=== PATIENT | male | born 1990 | race Caucasian/White ===

== ENCOUNTER 2023-12-30 06:57 | Day surgery (SDC) | payer BC, MEDICAID, SELFPAY ==
[2023-12-26 14:15] VITALS: BMI 26.4
--- NOTE | 2023-12-29 13:49 | HO.ANESPROP2 ---
Documented by User: Mary Alice Fowler NP 12/29/23 14:00 HPI - Anesthesia Eval Consult details Narrative: 33yo M for Upper Endoscopy Per 12/2023 [facility] neurosurgery note: Pt with congenital hydrocephalus and bilateral lateral ventricular catheters and fourth ventricular catheter; epilepsy with good seizure control on depakote. Fell 09/2023 while vacationing in [place] with head injury requiring [employer] shunt revision, revision of his fourth ventricular catheter and placement of distal shunt into pleural cavity. Prolonged hospitalization and additional seizures, prompting change in antiepileptics. Brain MRI 12/2023 demonstrates decreased size of lateral ventricles and fourth ventricle c/w head CT 09/[address] Soledad GAN Past Medical History Medical History (Updated 12/29/23 @ 07:03 by Marilia Chang, RN) Autism Intellectual disability Hydrocephalus Seizures GERD (gastroesophageal reflux disease) Surgical History Surgical History (Updated 12/26/23 @ 14:20 by Jeannie Lennon RN) History of surgery [employer] (ventriculoperitoneal) shunt status Social History Social History Patient Tobacco Use Status: Never used Tobacco Use of substances other than those prescribed or required for medical reasons: No Are you DNR?: No Advance Directives: No Advance Directives Information Provided: Yes Meds Allergies Allergy/AdvReac Type Severity Reaction Status Date / Time ceftriaxone [From Rocephin] Allergy Unknown Unknown Verified 12/26/23 14:15 Home Medications ?Medication ?Instructions ?Recorded ?Confirmed ?Last Taken ?Type clobazam 10 mg tablet 5 mg PO BEDTIME 12/26/23 12/30/23 12/29/23 History divalproex 125 mg tablet,delayed 500 mg PO BID 12/26/23 12/30/23 12/29/23 History release (Depakote) docusate sodium 100 mg capsule 100 mg PO BID constipation 12/26/23 12/30/23 12/29/23 History Exam Height,Weight and Vital Signs: Height 5 ft 3 in Weight 67.585 kg Documented by User: Flyod Wheat MD 12/30/23 14:18 [facility] Past Medical History Medical History (Updated 12/29/23 @ 07:03 by Marilia Chang RN) Autism Intellectual disability Hydrocephalus Seizures GERD (gastroesophageal reflux disease) Family History Family history of problems with anesthesia: No Surgical History Surgical History (Updated 12/26/23 @ 14:20 by Jeannie Lennon RN) History of surgery [employer] (ventriculoperitoneal) shunt status History of Problems with Anesthesia: No Social History Social History Patient Tobacco Use Status: Never used Tobacco Use of substances other than those prescribed or required for medical reasons: No Are you DNR?: No Advance Directives: No Advance Directives Information Provided: Yes Meds Allergies Allergy/AdvReac Type Severity Reaction Status Date / Time ceftriaxone [From Rocephin] Allergy Unknown Unknown Verified 12/26/23 14:15 Home Medications ?Medication ?Instructions ?Recorded ?Confirmed ?Last Taken ?Type clobazam 10 mg tablet 5 mg PO BEDTIME 12/26/23 12/30/23 12/29/23 History divalproex 125 mg tablet,delayed 500 mg PO BID 12/26/23 12/30/23 12/29/23 History release (Depakote) docusate sodium 100 mg capsule 100 mg PO BID constipation 12/26/23 12/30/23 12/29/23 History Exam Airway Mallampati Class: IV TM Dist: >3cm Neck ROM: Full Loose/Missing/Broken Teeth: No Assessment and Plan Assessment Anesthesia Assessment: Anesthesia Plan Discussed and Chart Reviewed Final Anesthetic Review Family History of Problems with Anesthesia: No History of Problems with Anesthesia: No NPO: Yes ASA Class: III Final Preanesthetic Review: No Changes in Pt Med Stat, Meds/Allgs Chart Reviewed, Consent Obtained/Reviewed and Anes Risks/Benef Reviewed Patient Risk: Intermediate Procedure Risk: Low Anesthetic Plan Anesthetic Plan: MAC: Disposition: Standard PACU
[2023-12-30 07:06] VITALS: BMI 28.0
[2023-12-30 07:47] VITALS: BP 115/80; PULSE 77; RESP 16; TEMP 36.4; O2SAT 100
--- NOTE | 2023-12-30 08:24 | MHC.SHP ---
Pre-Procedural Eval Section A - 24 Hr Update-Section A only Date of Service: 12/30/23 Section B - Complete if H&P > 30 days Chief Complaint: Epigastric pain Details of Present Illness: see H&P no changes Relevant Family History (Specify if Yes): No Relevant Social History: None Present Medications: see Short Stay Collaborative assessment Medical History: No relevant PMH Allergies: Allergies Allergy/AdvReac Type Severity Reaction Status Date / Time ceftriaxone [From Rocephin] Allergy Unknown Unknown Verified 12/26/23 14:15 Review of Systems Sugical H&P ROS: Negative: Constitution, Cardiovascular, Respiratory, Neurological, Psychiatric, Hem-Onc, Allergic/Immunologic, Gastrointestinal, Genitourinary, Musculoskeletal, Integumentary, Endocrine and Eyes/Ears/Nose/Throat Exam Surgical H&P Exam: Normal: HEENT, Normal: Heart, Normal: Lungs, Normal: Extremities, Normal: Abdomen, Normal: Skin and Normal: Neurological Plan Diagnosis/Plan: Unchanged I have reviewed the history and physical and performed a pertinent physical examination on my patient. No changes have occurred unless specified. Time Spent With Patient Time: Total time managing care of this patient today ____ minutes.
[2023-12-30 08:50] VITALS: BP 103/65; PULSE 82; RESP 15; TEMP 36.5; O2SAT 95
--- NOTE | 2023-12-30 08:58 | OP_ITS ---
DATE OF SERVICE: 12/30/2023 SURGEON: Caesar Baron MD INDICATIONS: Gastroesophageal reflux disease. PREOPERATIVE DIAGNOSIS: POSTOPERATIVE DIAGNOSIS: PROCEDURE PERFORMED: Upper endoscopy with biopsy. ESTIMATED BLOOD LOSS: COMPLICATIONS: ANESTHESIA: Monitored anesthesia care. ASSISTANTS: SPECIMENS: DESCRIPTION OF PROCEDURE: A history and physical were performed. The risks and benefits of the procedure were explained to the patient, and informed consent was obtained. The patient was placed in a left lateral decubitus position. The Olympus video gastroscope was introduced into the esophagus, stomach, and duodenum. Examination was performed, and the scope was removed. He tolerated the procedure well and was returned to the recovery in stable condition. FINDINGS: 1. Esophagus. The esophagus was normal. There was an irregular EG junction. There was no esophagitis. There was a small sliding hiatal hernia with a small paraesophageal component. Biopsies were obtained from the EG junction. 2. Stomach. The stomach was otherwise normal. Antral biopsies were obtained to evaluate for H. pylori. 3. Duodenum, the bulb and 2nd portion showed some mild flattening of the duodenal folds. Second portion biopsies were obtained to evaluate for celiac disease. IMPRESSION: Gastroesophageal reflux disease. RECOMMENDATION: Follow up the biopsy results. MD ANAHI Dent/ANJALI / [id number]
[2023-12-30 09:05] VITALS: BP 108/66; PULSE 77; RESP 18; TEMP 36.5; O2SAT 95
--- NOTE | 2023-12-30 10:34 | PC.NURSE ---
Dr Wheat aware pre procedure of pt's seizure history post op. Ok to proceed. Pt to receive AM Depakote post op from mom.
== END 2023-12-30 09:22 | disposition home or self-care (01) ==
PROVIDERS: PCP Physician Assistant; Visit Provider Internal Medicine Gastroenterology
PROC: 0DJ08ZZ Inspection of Upper Intestinal Tract, Via Natural or Artificial Opening Endoscopic (ICD-10-PCS; CPT 43235; principal; 2023-12-30 08:20)
DX: R10.13 Epigastric pain (principal); K21.9 Gastro-esophageal reflux disease without esophagitis; K44.9 Diaphragmatic hernia without obstruction or gangrene; G40.909 Epilepsy, unspecified, not intractable, without status epilepticus; F84.0 Autistic disorder; G91.9 Hydrocephalus, unspecified; Z79.899 Other long term (current) drug therapy; Z98.2 Presence of cerebrospinal fluid drainage device; Z88.1 Allergy status to other antibiotic agents
CPT/HCPCS: 43239; 88305; 88313; 88342; J2250; J2704

== ENCOUNTER 2024-01-06 13:21 | Outpatient (REF) | payer BC, MEDICAID, SELFPAY ==
--- NOTE | ~2024-01-06 | XR_ITS ---
EXAMINATION: XR SKULL CLINICAL INFORMATION: Status-post HEAT READER shunt. COMPARISON: MRI brain dated 01/12/2008. TECHNIQUE: AP and lateral views of the skull were obtained. FINDINGS: The calvarium is intact. The paranasal sinuses are well aerated and clear. Multiple portions of intracranial shunt tubing are noted, with redundant catheter extending inferiorly along the left cervical soft tissues. There is a fragment of abandoned shunt catheter noted inferiorly in the left cervical soft tissues. XR/XR skull min 4V IMPRESSION: Intracranial shunt tubing is noted, as detailed. Electronically signed by: Jonny Carrasco MD 02/04/2024 11:34 AM EDT
--- NOTE | ~2024-01-06 | XR_ITS ---
EXAMINATION: XR CHEST 2 VIEWS CLINICAL INFORMATION: Status-post MIND READER shunt placement. COMPARISON: None. TECHNIQUE: Frontal and lateral views of the chest were obtained. FINDINGS: The heart, great vessels, pulmonary vasculature and mediastinum are normal. The lungs show no focal infiltrate, effusion or pneumothorax. There is bibasilar plate-like atelectasis, left greater than right. There is blunting of the right lateral costophrenic angle. No pneumothorax is seen. There is no acute osseous abnormality. Multiple segments of shunt tubing are seen projecting over the right thorax, showing sinuous courses. Some of these are abandoned. XR/XR chest 2V IMPRESSION: 1. No focal infiltrate or congestive heart failure is seen. 2. There is bibasilar plate-like atelectasis, left greater than right. There is blunting of the right lateral costophrenic angle, raising the possibility of a small pleural effusion and/or chronic pleural thickening. 3. Multiple sinuous segments of shunt tubing project over the right thorax, some abandoned. No pneumothorax is seen. Electronically signed by: Jonny Carrasco MD 02/04/2024 11:02 AM EDT
--- NOTE | ~2024-01-06 | XR_ITS ---
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 COMPARISON: None available. TECHNIQUE: 3 views of the abdomen and pelvis are submitted. FINDINGS: The bowel gas pattern is normal with no evidence of ileus or obstruction. No unusual soft tissue calcifications are noted. There are multiple segments of shunt tubing identified, including an isolated segment in the left abdomen and pelvis and a lengthy abandoned isolated segment within the right abdomen and pelvis. There are 2 catheters which terminate in the right abdomen. The bones are unremarkable. XR/XR abdomen min 2V IMPRESSION: 1. Multiple segments of shunt tubing are noted, with 2 catheters terminating in the right upper quadrant. 2. There is a nonspecific bowel gas pattern. No free intraperitoneal air is noted. Electronically signed by: Jonny Carrasco MD 02/04/2024 11:29 AM EDT
== END 2024-01-06 13:22 | disposition home or self-care (01) ==
LOC: HO.XRAY 13:21
PROVIDERS: PCP Physician Assistant; Visit Provider Psychiatry & Neurology Neurology
DX: Z98.2 Presence of cerebrospinal fluid drainage device (principal)
CPT/HCPCS: 70260; 71046; 74019